=== PATIENT | female | born 1955 | race Caucasian/White ===

== ENCOUNTER → 2018-03-17 | Outpatient (CLI) | payer OTHER ==
[~2018-03-17] MED LIST: PROP60CA28 PO
--- NOTE | 2018-03-17 14:09 | RADIOLOGY IMAGING REPORT ---
FACILITY: [facility] [place] PATIENT NAME: MICHELLE ZAMBRANO : [id number] MR: [id number] V: [id number] EXAM DATE: [id number] ORDERING PHYSICIAN: JUAN MANUEL VALLE TECHNOLOGIST: Marleny Owen PROCEDURE:BILATERAL DIGITAL SCREENING MAMMOGRAM WITH CAD ASSISTED INTERPRETATION & 3D TOMOSYNTHESIS COMPARISON:Prior mammograms 03/07/17, 01/22/16 & 08/11/14. INDICATIONS:screening FINDINGS: The breast tissue demonstrates scattered fibroglandular densities. There is no dominant mass, suspicious cluster of microcalcifications or persistent areas of architectural distortion. DIAGNOSTIC CATEGORY 1--NEGATIVE. RECOMMENDATIONS: ROUTINE MAMMOGRAM AND CLINICAL EVALUATION IN 1 YEAR. IMPRESSION: BIRADS 1: Negative. Dictated by: Nikunj Sullivan M.D. on 03/17/2018 at 13:55 Transcribed by: BRENTON on 03/17/2018 at 14:03 Approved by: Nikunj Sullivan M.D. on 03/17/2018 at 14:08 [facility]
== END ==
LOC: MAMO 01:58
PROVIDERS: ATTEND Nurse Practitioner Family
DX: Z12.31 Encounter for screening mammogram for malignant neoplasm of breast (principal)
CPT/HCPCS: 77063; 77067

== ENCOUNTER → 2019-04-20 | Outpatient (CLI) | payer OTHER ==
--- NOTE | 2019-04-20 14:36 | RADIOLOGY IMAGING REPORT ---
[place] [facility] [place] NAME: MICHELLE ZAMBRANO : [id number] MR: [id number] V: [id number] EXAM DATE: ORDERING PHYSICIAN: JUAN MANUEL VALLE TECHNOLOGIST: Shania West PROCEDURE: BILATERAL DIGITAL SCREENING MAMMOGRAM WITH CAD ASSISTED INTERPRETATION & 3D TOMOSYNTHESIS REASON FOR STUDY: Screening. FAMILY HISTORY OF BREAST CANCER: None. BREAST PROCEDURES/TREATMENTS: None. COMPARISON: 03/17/18, 03/07/17, 01/22/16, 08/11/14, 10/08/12. VIEWS OBTAINED: Bilateral 2D & 3D full field CC & MLO projections. BREAST DENSITY: There are scattered areas of fibroglandular density throughout the breasts. MAMMOGRAM FINDINGS: The parenchymal pattern has remained stable allowing for difference in mammographic technique & patient positioning. IMPRESSION: BIRADS 1: Negative. DIAGNOSTIC CATEGORY 1--NEGATIVE. RECOMMENDATIONS: ROUTINE MAMMOGRAM AND CLINICAL EVALUATION. Dictated by: Aminta Peters M.D. on 04/20/2019 at 13:17 Transcribed by: BRENTON on 04/20/2019 at 14:09 Approved by: Aminta Peters M.D. on 04/20/2019 at 14:31 [facility]
== END ==
LOC: MAMO 01:09
PROVIDERS: ATTEND Nurse Practitioner Family
DX: Z12.31 Encounter for screening mammogram for malignant neoplasm of breast (principal)
CPT/HCPCS: 77063; 77067